=== PATIENT | male | born 1995 | race African-American/Black ===

== ENCOUNTER 2017-06-15 09:38 | Emergency (ER) | payer SELFPAY ==
[2017-06-15] MEDS ORDERED: Dexamethasone 10 MG/ML VIAL ONE (10:06)
[2017-06-15] MEDS ORDERED: AMOXicillin 250 MG CAP ONE (10:06)
[2017-06-15] MEDS ORDERED: Benzonatate 100 MG CAP ONE (10:06)
== END 2017-06-15 10:30 | disposition home or self-care (01) ==
LOC: MADERS 09:38
DX: J20.9 Acute bronchitis, unspecified (principal); J45.909 Unspecified asthma, uncomplicated
CPT/HCPCS: 94640; J1100; J7620

== ENCOUNTER 2017-06-21 01:50 | Emergency (ER) | payer SELFPAY ==
[2017-06-21] MEDS ORDERED: HYDROcodone/Acetaminophen 10/325 mg Tablet ONE (02:27)
[2017-06-21] MEDS ORDERED: AMOXicillin 250 MG CAP ONE (02:28)
[2017-06-21] MEDS ORDERED: Naproxen 500 MG TAB ONE (02:28)
== END 2017-06-21 02:40 | disposition home or self-care (01) ==
LOC: MADERS 01:50
DX: K08.89 Other specified disorders of teeth and supporting structures (principal)
CPT/HCPCS: 99282

== ENCOUNTER 2017-06-26 01:18 | Emergency (ER) | payer SELFPAY ==
[2017-06-26] MEDS ORDERED: Promethazine HCl 25 MG/ML VIAL ONE (01:38)
[2017-06-26] MEDS ORDERED: Ventolin HFA Inhaler 60 PUFF INHALER ONE (02:07)
[2017-06-26] MEDS ORDERED: Acetaminophen 500 MG TAB ONE (02:19)
--- NOTE | 2017-06-26 08:30 | RAD ---
CHEST PA AND LATERAL 2 VIEWS: Date: 06/26/17 HISTORY: 22-year-old male with cough. FINDINGS / IMPRESSION:: Heart size is within normal limits. There are some patchy alveolar parenchymal changes in the right l annamaria, probably involving middle lobe, lower lobe, and upper lobe, certainly concerning for early pneum onia. The left chest appears clear. POS: [facility]
== END 2017-06-26 02:30 | disposition home or self-care (01) ==
LOC: MADERS 01:18
DX: J20.9 Acute bronchitis, unspecified (principal); J45.909 Unspecified asthma, uncomplicated; F31.9 Bipolar disorder, unspecified; Z87.891 Personal history of nicotine dependence
CPT/HCPCS: 71046; 96372; J2550